=== PATIENT | female | born 1935 ===

== ENCOUNTER 2020-08-31 17:41 | Inpatient (IN) | payer MEDICARE, OTHER ==
[~2020-08-31] VITALS: Ht 165.1 cm; Wt 78.5 kg
[~2020-08-31 17:41] MED LIST: ASPI325 PO; ATEN50 PO; CEPH500 PO; CLON.1 PO; LISI5 PO; METO50 PO; PHENY100ER PO; Prednisone20 MG PO; SIMV40 PO; Vistaril50 MG PO
[2020-08-31 18:50] LABS: BASOPHILS ABSOLUTE AUTO 0.03 K/mm3 (0.00-0.23); BASOPHILS PERCENT AUTO 0 % (0-2); EOSINOPHILS PERCENT AUTO 0 % (0-6); Hematocrit 39.4 % (33.0-51.0); Hemoglobin 13.3 g/dL (11.5-16.0); IMMATURE GRAN ABSOLUTE AUTO 0.05 K/mm3 (0.00-0.10); IMMATURE GRAN PERCENT AUTO 0 % (0-1); LYMPHOCYTES PERCENT AUTO 6 % (21-46); MONOCYTES ABSOLUTE AUTO 0.67 K/mm3 (0.16-1.47); MONOCYTES PERCENT AUTO 5 % (4-13); Mean Corpuscular HGB 31.7 pg (26.0-34.0); Mean Corpuscular HGB Conc 33.8 g/dL (31.5-36.5); Mean Corpuscular Volume 94 fL (80-100); Mean Platelet Volume 8.3 fL (9.1-12.4); NEUTROPHILS PERCENT AUTO 88 % (41-73); Platelet Count 679 K/mm3 (150-400); RDW Coefficient Variation 12.9 % (11.7-14.2); RDW Standard Deviation 44.8 fL (35.1-46.3); Red Blood Cell Count 4.19 M/mm3 (3.80-5.20); White Blood Cell Count 14.25 K/mm3 (4.00-11.30)
[2020-08-31 19:17] LABS: Alanine Aminotransfer (ALT/SGP 23 U/L (12-78); Albumin/Globulin Ratio 1.1 (0.8-1.8); Alk Phos 103 U/L (50-136); Anion Gap 8 mmol/L (6-16); Aspartate Aminotrans (AST/SGOT 24 U/L (12-37); Bilirubin, Total 0.8 mg/dL (0.1-1.0); Blood Urea Nitrogen 19 mg/dL (8-24); Bun/Creatinine Ratio 20.7 (12.0-20.0); CO2, Blood 25 mmol/L (21-32); Calcium, Blood 9.7 mg/dL (8.5-10.1); Chloride, Blood 99 mmol/L (98-108); Creatinine, Blood 0.92 mg/dL (0.40-1.00); Globulin, Blood 3.8 g/dL (2.2-4.0); Glomerular Filtration Rate >60 (60-); Glucose, Blood 101 mg/dL (70-99); Potassium, Blood 3.9 mmol/L (3.5-5.5); Sodium, Blood 132 mmol/L (136-145); Total Protein, Blood 7.8 g/dL (6.4-8.2); Troponin I <0.015 ng/mL (0.000-0.040)
[2020-08-31 23:21] LABS: Source, Urine Catheter
[2020-08-31 23:23] LABS: Bilirubin, Urine Neg (Neg); Blood, Urine 2+ (Neg); Glucose Qualitative, Urine Neg (Neg); Ketones, Urine Neg (Neg); Leukocyte Esterase, Urine 1+ (Neg); Nitrite, Urine Neg (Neg); Protein, Urine 3+ (Neg); Specific Gravity, Urine 1.015 (1.003-1.022); Urobilinogen, Urine NORM (Normal)
[2020-08-31 23:31] LABS: Appearance, Urine Hazy (Clear); Color, Urine Yellow (P-Yellow)
[2020-08-31 23:32] LABS: Bacteria Many /hpf; Red Blood Cells, Urine Rare /hpf (0-2); Squamous Epithelial Cells Rare /hpf (Few); White Blood Cells, Urine 50-100 /hpf (0-5)
[2020-09-01] MEDS ORDERED: AMLO10 PO (01:26)
[2020-09-01] MEDS ORDERED: LAMO100 PO (01:26)
[2020-09-01 05:32] LABS: BASOPHILS ABSOLUTE AUTO 0.04 K/mm3 (0.00-0.23); BASOPHILS PERCENT AUTO 0 % (0-2); EOSINOPHILS ABSOLUTE AUTO 0.06 K/mm3 (0.00-0.68); EOSINOPHILS PERCENT AUTO 1 % (0-6); Hemoglobin 12.1 g/dL (11.5-16.0); IMMATURE GRAN ABSOLUTE AUTO 0.03 K/mm3 (0.00-0.10); IMMATURE GRAN PERCENT AUTO 0 % (0-1); LYMPHOCYTES ABSOLUTE AUTO 1.38 K/mm3 (0.84-5.20); LYMPHOCYTES PERCENT AUTO 13 % (21-46); MONOCYTES ABSOLUTE AUTO 1.08 K/mm3 (0.16-1.47); MONOCYTES PERCENT AUTO 10 % (4-13); Mean Corpuscular HGB 32.4 pg (26.0-34.0); Mean Corpuscular HGB Conc 34.6 g/dL (31.5-36.5); Mean Corpuscular Volume 94 fL (80-100); Mean Platelet Volume 8.3 fL (9.1-12.4); NEUTROPHILS ABSOLUTE AUTO 8.24 K/mm3 (1.96-9.15); NEUTROPHILS PERCENT AUTO 76 % (41-73); Platelet Count 590 K/mm3 (150-400); RDW Coefficient Variation 12.8 % (11.7-14.2); RDW Standard Deviation 44.5 fL (35.1-46.3); Red Blood Cell Count 3.73 M/mm3 (3.80-5.20); White Blood Cell Count 10.83 K/mm3 (4.00-11.30)
[2020-09-01 06:12] LABS: Alanine Aminotransfer (ALT/SGP 21 U/L (12-78); Albumin, Blood 3.2 g/dL (3.4-5.0); Alk Phos 85 U/L (50-136); Anion Gap 9 mmol/L (6-16); Aspartate Aminotrans (AST/SGOT 39 U/L (12-37); Bilirubin, Total 0.8 mg/dL (0.1-1.0); Blood Urea Nitrogen 17 mg/dL (8-24); Bun/Creatinine Ratio 18.1 (12.0-20.0); CO2, Blood 24 mmol/L (21-32); Calcium, Blood 8.5 mg/dL (8.5-10.1); Chloride, Blood 102 mmol/L (98-108); Creatinine, Blood 0.94 mg/dL (0.40-1.00); Globulin, Blood 3.1 g/dL (2.2-4.0); Glomerular Filtration Rate >60 (60-); Glucose, Blood 86 mg/dL (70-99); Potassium, Blood 3.3 mmol/L (3.5-5.5); Sodium, Blood 135 mmol/L (136-145); Total Protein, Blood 6.3 g/dL (6.4-8.2)
[2020-09-01] MEDS ORDERED: ASPI81CH PO (12:54)
[2020-09-01] MEDS ORDERED: LOSA50 PO (12:57)
--- NOTE | 2020-09-01 13:15 | NUR ---
ADMISSION PT ADMITTED AT 1240. PT ORIENTED TO ROOM. CALL LIGHT IN REACH. BED ALARM SET. PT A&O AT THIS TIME. PT STATES SHE WILL CALL BEFORE GETTING OUT BY BED. PT PROVIDED WITH YOGURT & WATER. VS REVIEWED.
--- NOTE | 2020-09-01 18:07 | NUR ---
SHIFT SUMMARY PT WORKED WITH OT TODAY. GOT UP TO CHAIR WITH 1P ASSIST FOR A FEW HOURS. PT BACK IN BED NOW. EATING DINNER. BED ALARM ON. PT EX-DAUGHTER IN [place] IN TO SEE HER TODAY. IV FLUIDS DCED. TELE RUNNING NSR PER OFFICE CLEANER. PT DENIES CP/SOB THIS SHIFT. NO ACUTE CHANGES IN ASSESSMENT AT THIS TIME. VS REVIEWED. DR. MURRAY CALLED & NOTIFIED OF COMPLETED HOME MED LIST. HYDRALAZINE ORDERED CHANGED TO Q4H PRN FOR BETTER COVERAGE NEEDED. CALL LIGHT IN REACH.
--- NOTE | 2020-09-02 03:35 | NUR ---
PULP ROLLER SUMMARY PT A&OX3, PLEASANT, PT FORGETFUL AND IMPULSIVE AT TIMES. PT EDUCATED ON PROPER USE OF CALL LIGHT. NO C/O PAIN OR ANY DISCOMFORT. DENIES CP, SOB, OR N&V. PT ON CIWA MONITORING, NO S/S OF ETOH WITHDRAWALS NOTED. PT CONT ON IV ABX, NO ASE NOTED. PT CALM AND RESTED IN BED T/O SHIFT. BED AT LOWEST POSITION W/ ALARM ON, CALL LIGHT WITHIN REACH. PT SBA TO THE BATHROOM. CONTINENT OF B&B. DENIES DYSURIA.
--- NOTE | 2020-09-02 18:09 | NUR ---
SHIFT SUMMARY PT UP IN ROOM FREQUENTLY CHECKING ON DIFFERENT ITEMS OR GOING TO THE BATHROOM. WALKED IN HALLWAY FOR APPROX 15 MINUTES WITH STAFF THIS MORNING. APPEARS STABLE ON FEET. CAN BE IMPULSIVE AND DOESN'T CALL FOR ASSISTANCE AND CHAIR ALARM GOES OFF. POSSIBLE DISCHARGE TOMORROW. FAMILY IN TO VISIT THIS AFTERNOON.
[2020-09-03 05:16] LABS: BASOPHILS ABSOLUTE AUTO 0.05 K/mm3 (0.00-0.23); BASOPHILS PERCENT AUTO 1 % (0-2); EOSINOPHILS ABSOLUTE AUTO 0.13 K/mm3 (0.00-0.68); EOSINOPHILS PERCENT AUTO 2 % (0-6); Hematocrit 36.8 % (33.0-51.0); Hemoglobin 12.4 g/dL (11.5-16.0); IMMATURE GRAN ABSOLUTE AUTO 0.03 K/mm3 (0.00-0.10); IMMATURE GRAN PERCENT AUTO 0 % (0-1); LYMPHOCYTES PERCENT AUTO 16 % (21-46); MONOCYTES ABSOLUTE AUTO 0.94 K/mm3 (0.16-1.47); MONOCYTES PERCENT AUTO 12 % (4-13); Mean Corpuscular HGB 32.5 pg (26.0-34.0); Mean Corpuscular HGB Conc 33.7 g/dL (31.5-36.5); Mean Corpuscular Volume 97 fL (80-100); Mean Platelet Volume 8.6 fL (9.1-12.4); NEUTROPHILS ABSOLUTE AUTO 5.55 K/mm3 (1.96-9.15); NEUTROPHILS PERCENT AUTO 69 % (41-73); Platelet Count 621 K/mm3 (150-400); RDW Coefficient Variation 13.1 % (11.7-14.2); RDW Standard Deviation 46.2 fL (35.1-46.3); Red Blood Cell Count 3.81 M/mm3 (3.80-5.20)
[2020-09-03 05:41] LABS: Albumin, Blood 3.1 g/dL (3.4-5.0); Bilirubin, Total 0.4 mg/dL (0.1-1.0); Bun/Creatinine Ratio 15.5 (12.0-20.0); Calcium, Blood 8.6 mg/dL (8.5-10.1); Creatinine, Blood 1.16 mg/dL (0.40-1.00); Globulin, Blood 3.1 g/dL (2.2-4.0); Potassium, Blood 3.5 mmol/L (3.5-5.5); Total Protein, Blood 6.2 g/dL (6.4-8.2)
--- NOTE | 2020-09-03 05:50 | NUR ---
SHIFT SUMMARY- PT. A&O, FORGETFUL AT TIMES. HAD NO COMPLAINTS DURING THE NIGHT. PT. APPEARED TO HAVE RESTED COMFORTABLY IN BED DURING THE NIGHT, NO APPARENT DISTRESS NOTED. CALL LIGHT WITHIN REACH, SIDE RAILS UPX2, AND BED ALARM ON. WILL CONT TO MONITOR.
[2020-09-03] MEDS ORDERED: ATOR20 PO (10:49)
[2020-09-03] MEDS ORDERED: LEVFLO500 PO (10:49)
--- NOTE | 2020-09-03 11:30 | NUR ---
DISCHARGE INSTRUCTIONS COMPLETED AND DISCUSSED WITH PT AND DAUGHTER EXPRESING UNDERSTANDING. SCRIPTS FAXED TO [facility]. TO [facility] VIA W/C.
== END 2020-09-03 11:39 | disposition home health service (06) | DRG 689 ==
LOC: ER 17:41 → MEDS 09-01 01:53 → ERHOLD 09-01 01:53 → MEDS 09-01 12:35
PROVIDERS: Internal Medicine; Physician Assistant; ADMIT Internal Medicine
PROC: 3E0234Z Introduction of Serum, Toxoid and Vaccine into Muscle, Percutaneous Approach (ICD-10-PCS; principal; 2020-09-01)
DX: N39.0 Urinary tract infection, site not specified (principal); G92 Toxic encephalopathy; Z23 Encounter for immunization; E87.6 Hypokalemia; E86.0 Dehydration; R41.0 Disorientation, unspecified; I10 Essential (primary) hypertension; E78.5 Hyperlipidemia, unspecified; I16.0 Hypertensive urgency; G40.909 Epilepsy, unspecified, not intractable, without status epilepticus; Z79.82 Long term (current) use of aspirin; Z79.52 Long term (current) use of systemic steroids; Z87.891 Personal history of nicotine dependence
CPT/HCPCS: 36415; 70450; 71045; 80053; 81001; 84146; 84484; 85025; 87077; 87086; 87186; 93005; 93010; 96372; 96374; 96375; 96376; 97110; 97116; 97162; 97165; 97530; 99285-25; A9270; J0360; J0696; J1650; J7030; Q2038

== ENCOUNTER 2021-09-28 10:04 | Emergency (ER) | payer MEDICARE ==
[~2021-09-28] VITALS: Ht 165.1 cm; Wt 75.8 kg
[~2021-09-28 10:04] MED LIST changes: +AMLO10 PO; +AMLODIPINE BESYL5 MG PO; +ASPI81CH PO; +ATOR10 PO; +ATOR20 PO; +Aspir 8181 MG PO; +FURO20 PO; +LAMO100 PO; +LAMOTRIGINE100 M1 PO; +LEVFLO500 PO; +LOSA50 PO; +LOSARTAN POTAS100 M1 PO; +METO25 PO; +SODCHL1 PO; +SPIR25 PO; +XARELTO15 MG PO
[2021-09-28 11:15] LABS: BASOPHILS ABSOLUTE AUTO 0.01 K/mm3 (0.00-0.23); BASOPHILS PERCENT AUTO 0 % (0-2); EOSINOPHILS ABSOLUTE AUTO 0.03 K/mm3 (0.00-0.68); EOSINOPHILS PERCENT AUTO 1 % (0-6); IMMATURE GRAN ABSOLUTE AUTO 0.02 K/mm3 (0.00-0.10); IMMATURE GRAN PERCENT AUTO 0 % (0-1); LYMPHOCYTES ABSOLUTE AUTO 0.83 K/mm3 (0.84-5.20); LYMPHOCYTES PERCENT AUTO 15 % (21-46); MONOCYTES ABSOLUTE AUTO 0.42 K/mm3 (0.16-1.47); MONOCYTES PERCENT AUTO 8 % (4-13); Mean Corpuscular HGB Conc 27.8 g/dL (31.5-36.5); Mean Corpuscular Volume 76 fL (80-100); Mean Platelet Volume 9.5 fL (9.1-12.4); NEUTROPHILS ABSOLUTE AUTO 4.31 K/mm3 (1.96-9.15); NEUTROPHILS PERCENT AUTO 77 % (41-73); NRBC ABSOLUTE 0.03 K/mm3 (0.00-0.02); NRBC Auto 0.5 /100 WBC (0.0-0.2); Platelet Count 412 K/mm3 (150-400); RDW Standard Deviation 46.6 fL (35.1-46.3); Red Blood Cell Count 2.38 M/mm3 (3.80-5.20); White Blood Cell Count 5.62 K/mm3 (4.00-11.30)
[2021-09-28 11:29] LABS: Magnesium, Blood 2.5 mg/dL (1.6-2.4)
[2021-09-28 11:44] LABS: Albumin, Blood 3.4 g/dL (3.4-5.0); Albumin/Globulin Ratio 1.2 (0.8-1.8); Bilirubin, Total 0.7 mg/dL (0.1-1.0); Bun/Creatinine Ratio 17.9 (12.0-20.0); Calcium, Blood 9.2 mg/dL (8.5-10.1); Creatinine, Blood 2.4 mg/dL (0.40-1.00); Globulin, Blood 2.9 g/dL (2.2-4.0); Potassium, Blood 4.1 mmol/L (3.5-5.5); Total Protein, Blood 6.3 g/dL (6.4-8.2)
[2021-09-28 13:43] LABS: Influenza A, PCR NEGATIVE (NEGATIVE); Influenza B, PCR NEGATIVE (NEGATIVE); Resp Syncytial Virus, PCR NEGATIVE (NEGATIVE); SARS-Cov-2 (COVID-19) PCR, MMC NEGATIVE (NEGATIVE)
[2021-09-28 14:01] LABS: Source, Urine Clean Catch
[2021-09-28 14:05] LABS: Bilirubin, Urine Neg (Neg); Blood, Urine Neg (Neg); Glucose Qualitative, Urine Neg (Neg); Ketones, Urine Neg (Neg); Leukocyte Esterase, Urine Neg (Neg); Nitrite, Urine Neg (Neg); Protein, Urine Neg (Neg); Specific Gravity, Urine 1.005 (1.003-1.022); Urobilinogen, Urine NORM (Normal); pH, Urine 6.5 (5.0-8.0)
[2021-09-28 14:11] LABS: Appearance, Urine Clear (Clear); Color, Urine Pale Yellow (P-Yellow)
[2021-12-25] MEDS ORDERED: CEFD300 PO (23:01)
[2021-12-25] MEDS ORDERED: ONDA4ODT MM (23:15)
== END 2021-09-28 16:00 | disposition short-term general hospital (02) ==
LOC: ER 10:04
PROVIDERS: Emergency Medicine; Physician Assistant
DX: K92.2 Gastrointestinal hemorrhage, unspecified (principal); I13.0 Hypertensive heart and chronic kidney disease with heart failure and stage 1 through stage 4 chronic kidney disease, or unspecified chronic kidney disease; N18.9 Chronic kidney disease, unspecified; I50.9 Heart failure, unspecified; D63.1 Anemia in chronic kidney disease; Z20.822 Contact with and (suspected) exposure to COVID-19; I48.91 Unspecified atrial fibrillation; E78.5 Hyperlipidemia, unspecified; Z79.899 Other long term (current) drug therapy; Z79.82 Long term (current) use of aspirin; N18.4 Chronic kidney disease, stage 4 (severe)
CPT/HCPCS: 0241U; 36415; 36430; 51702; 80053; 81003; 82272; 82607; 82746; 83735; 84100; 84443; 85025; 86850; 86900; 86901; 86923; 93005; 93010; 96374; 99285-25; C9113; J7030; P9016

== ENCOUNTER 2022-03-30 09:17 | Emergency (ER) | payer MEDICARE ==
[~2022-03-30] VITALS: Ht 165.1 cm; Wt 70.3 kg
[~2022-03-30 09:17] MED LIST changes: +CEFD300 PO; +ONDA4ODT MM
[2022-03-30] MEDS ORDERED: Voltaren100 GM TOP (12:00)
== END 2022-03-30 12:10 | disposition home or self-care (01) ==
LOC: ER 09:17
DX: M75.41 Impingement syndrome of right shoulder (principal); I11.0 Hypertensive heart disease with heart failure; I50.9 Heart failure, unspecified; E78.5 Hyperlipidemia, unspecified; Z79.899 Other long term (current) drug therapy; Z79.01 Long term (current) use of anticoagulants
CPT/HCPCS: 73030; 99283-25

== ENCOUNTER 2022-12-01 08:32 | Inpatient (IN) | payer MEDICARE ==
[~2022-12-01] VITALS: Ht 165.1 cm; Wt 77.1 kg
[2022-12-01] VITALS (9 sets, daily range): BP systolic 150–183; BP diastolic 56–120
[~2022-12-01 08:32] MED LIST changes: +Voltaren100 GM TOP
[2022-12-01 08:50] LABS: Calcium, Ionized (POC) 1.22 mmol/L (1.10-1.46); Chloride (POC) 95 mmol/L (98-108); Creatinine (POC) 1.8 mg/dL (0.6-1.0); Glucose (ISTAT POC) 262 mg/dL (70-99); Potassium (POC) 4.4 mmol/L (3.5-5.5); Sodium (POC) 126 mmol/L (135-148); Total CO2 (POC) 21 mmol/L (21-32)
[2022-12-01 08:54] LABS: BASOPHILS ABSOLUTE AUTO 0.14 K/mm3 (0.00-0.23); BASOPHILS PERCENT AUTO 1 % (0-2); EOSINOPHILS ABSOLUTE AUTO 0.38 K/mm3 (0.00-0.68); EOSINOPHILS PERCENT AUTO 2 % (0-6); Hematocrit 40.9 % (33.0-51.0); Hemoglobin 12.7 g/dL (11.5-16.0); IMMATURE GRAN ABSOLUTE AUTO 0.71 K/mm3 (0.00-0.10); IMMATURE GRAN PERCENT AUTO 4 % (0-1); LYMPHOCYTES ABSOLUTE AUTO 7.61 K/mm3 (0.84-5.20); LYMPHOCYTES PERCENT AUTO 41 % (21-46); MONOCYTES ABSOLUTE AUTO 0.81 K/mm3 (0.16-1.47); MONOCYTES PERCENT AUTO 4 % (4-13); Mean Corpuscular HGB 32.9 pg (26.0-34.0); Mean Corpuscular HGB Conc 31.1 g/dL (31.5-36.5); Mean Corpuscular Volume 106 fL (80-100); NEUTROPHILS ABSOLUTE AUTO 8.77 K/mm3 (1.96-9.15); NEUTROPHILS PERCENT AUTO 48 % (41-73); NRBC ABSOLUTE 0.02 K/mm3 (0.00-0.02); NRBC Auto 0.1 /100 WBC (0.0-0.2); Platelet Count 655 K/mm3 (150-400); RDW Coefficient Variation 13.1 % (11.7-14.2); RDW Standard Deviation 51.3 fL (35.1-46.3); Red Blood Cell Count 3.86 M/mm3 (3.80-5.20); White Blood Cell Count 18.42 K/mm3 (4.00-11.30)
[2022-12-01 08:58] LABS: Base Excess Venous -20.5 mmol/L; PCO2 Venous 55.7 mmHg (38-42)
[2022-12-01 08:59] LABS: pH Blood Venous 6.94 (7.34-7.37)
[2022-12-01 09:10] LABS: Albumin, Blood 3.2 g/dL (3.4-5.0); Bun/Creatinine Ratio 18.8 (12.0-20.0); Calcium, Blood 8.8 mg/dL (8.5-10.1); Creatinine, Blood 1.54 mg/dL (0.40-1.00); Globulin, Blood 3.2 g/dL (2.2-4.0); Magnesium, Blood 2.4 mg/dL (1.6-2.4); Potassium, Blood 4.5 mmol/L (3.5-5.5); Total Protein, Blood 6.4 g/dL (6.4-8.2)
[2022-12-01 09:11] LABS: International Normalized Ratio 1.26; Prothrombin Time Results 13.1 Sec (9.7-11.5)
--- NOTE | 2022-12-01 12:09 | NUR ---
Pt was found slumped in her recliner this am. Called 911 and pt was found to be in asystole. They achieved ROSC in the field, lost pulse en route to the hospital, then regained ROSC with a dose of epi. Pt was intubated and brought to the ED. Family have decided against further treatment, and are awaiting the rest of family to arrive before extubating. Pt will be placed on comfort measures, and sent to ICU 7. Received orders for comfort care from Dr. Jarrett, and update given to both Han Villaseñor RN in ED and Kelsie Banda RN in ICU.
--- NOTE | 2022-12-01 12:22 | NUR ---
Assumed care of pt on arrival to ICU 7 from emergency departement. Plan for modified comfort care at this time and then terminal extubation when family member from [place] arrives. Pt on transport ventilator. Spo2 90% or greater per sat probe to ear.
--- NOTE | 2022-12-01 13:10 | NUR ---
"Spiritual Care Support | Nurse reequest Pt. is intubated in ED26 and is non responsive. Family members are present and verbalize the Pts. wishes to not continue life support measure. Palliative Care nurse Camila met with the family and confirmed thier desire to maintain the ventilator until Pts. son arrives from [place]. Pt. is moved to ICU7. This parole board member sated in ICU waiting room with the large family facilitating life reviews and normalizing the hospital experience. After Pt. was settled in her room it was agreed that the family could have five people at time. This parole board member will remain available to the staff and the family."
--- NOTE | 2022-12-01 14:24 | NUR ---
Several family members in room to see patient. Plan of care continues to be extubation when pt's son from [place] arrives.
--- NOTE | 2022-12-01 17:14 | NUR ---
Spir. Care Comfort Care Visit - EOL decisions Pt. is on comfort care. Several family members are present. Re-establish rapport with family. At the families request offer a blessing for the Pt. and the family. Stay with family and facilitate more life review. Family display appropriate grief. Offer pastoral grief support. Family verbalizes gratitude for the spiritual care visit. Note: The family has chosen [facility] in [facility] for home services.
--- NOTE | 2022-12-01 17:55 | NUR ---
Extubated at 1618. Propofol was empty, drip discontinued for extubation. Pt premedicated with morphine and ativan. After extubation, pt had large amount of audible secretions with respirations and severe repetitive muscle tremors and repetitive eye opening. Medicated with additional morphine, ativan, and dilaudid, until pt appeared comfortable. Camila GALVIN from pallitive care at bedside to assist with medication recommendations to help pt achieve comfort as patient's appearance was startling to the family. After last dose of ativan given, pt finally appeared calm and comfortable. Provided family with rhythm strip vial and fingerprint medalliion. Family appropriately visiting with patient.
--- NOTE | 2022-12-01 21:45 | NUR ---
ASSUMPTION OF CARE/PT TRANSFERRED TO [facility] RM [id number]: ASSUMED CARE OF PT AT 1900. PT UNRESPONSIVE, ASLEEP IN BED AT THIS TIME. PT HAS VERY COARSE LUNG SOUNDS THROUGHOUT AND MODERATE ORAL SECRETIONS. HR ON MONITOR 90-110'S. PT MEDICATED WITH MORPHINE AND ATROPINE PER EMAR. RECTAL TUBE IN PLACE AND DRAINING TO GRAVITY; BROWN LIQUID OUTPUT. CHEUNG IN PLACE AND DRAINING TO GRAVITY WITH MINIMAL OUTPUT. PT REPOSITIONED AND BOOSTED IN BED. DAUGHTER'S MONICA AND JUAN DANIEL, AND GRANDDAUGHTER HARSH AT BEDSIDE. FAMILY SPOKE WITH THIS RN ABOUT MEDICATIONS AND COMFORT MEASURE BEING APPLIED; ALL QUESTIONS ANSWERED AT THIS TIME. PT TRANSFERRED TO MEDICAL FLOOR. REPORT GIVEN TO OMAYRA GALVIN FOR ASSUMPTION OF CARE. PT TRANSFERRED VIA BED WITH THIS RN AND PCT. PT LEFT UNIT AT 2114. ALL BELONGINGS AND MEDICATIONS TRANSPORTED WITH PT TO NEW ROOM. FAMILY UPDATED ON NEW ROOM NUMBER AND MET PT UP IN NEW ROOM.
--- NOTE | 2022-12-01 22:59 | NUR ---
2129 PT WAS TRANSFER FROM ICU TO THE FLOOR PT MOVED TO BED FROM ICU BED WITH SLIDDER AND 4 PERSON TRANSFER. PT NON RESPONSIVE BREATHING WITH CORSE SOUNDS,MULTIPLE FAMILY MEMBERS HER AT BED SIDE. PT REPOSITIONED WITH PILLOWS FOR COMFORT TURNED TO HER LEFT SIDE. PT WAS GIVEN ATROPINE GTTS AND IV DILAUDID.PT RESTING PEACFULLY. SOME FAMILY HAD GONE HOME AN OTHER IN ROOM AT BED SIDE. AT 2237 FAMILY CAME PT NOT BREATHING. PT HAD PASSED AND WAS CHECKED BY THIS NURSE AND PRISONER CLASSIFICATION INTERVIEWER ODIN CODY. PT PASSED AT 2237. PTS FAMILY TOOK BLANKET NO OTHER BELONGING WERE BROUGHT HERE, FAMILY STATED NO OTHER FAMILY MEMBERS WERE COMMING TO SEE PT TONIGHT. AND FAMILY STATED IT WAS OK TO CALL THE HOME. CALLED AND NOTIFIED OF PTS PASSING.
== END 2022-12-01 22:38 | DRG 208 ==
LOC: ER 08:32 → ICUE 11:24 → ICUW 11:24 → ICUE 12:03 → MEDS 21:30
PROVIDERS: Student in an Organized Health Care Education/Training Program; ADMIT Internal Medicine
PROC: 5A1935Z Respiratory Ventilation, Less than 24 Consecutive Hours (ICD-10-PCS; principal; 2022-12-01)
PROC: 0BH17EZ Insertion of Endotracheal Airway into Trachea, Via Natural or Artificial Opening (ICD-10-PCS; 2022-12-01)
PROC: 5A12012 Performance of Cardiac Output, Single, Manual (ICD-10-PCS; 2022-12-01)
PROC: 0T9B70Z Drainage of Bladder with Drainage Device, Via Natural or Artificial Opening (ICD-10-PCS; 2022-12-01)
PROC: 0DH67UZ Insertion of Feeding Device into Stomach, Via Natural or Artificial Opening (ICD-10-PCS; 2022-12-01)
DX: J96.01 Acute respiratory failure with hypoxia (principal); E87.1 Hypo-osmolality and hyponatremia; I13.0 Hypertensive heart and chronic kidney disease with heart failure and stage 1 through stage 4 chronic kidney disease, or unspecified chronic kidney disease; N17.9 Acute kidney failure, unspecified; E87.4 Mixed disorder of acid-base balance; I48.20 Chronic atrial fibrillation, unspecified; E87.20 Acidosis, unspecified; I46.8 Cardiac arrest due to other underlying condition; J96.02 Acute respiratory failure with hypercapnia; Z66 Do not resuscitate; Z51.5 Encounter for palliative care; D72.829 Elevated white blood cell count, unspecified; N18.30 Chronic kidney disease, stage 3 unspecified; D75.839 Thrombocytosis, unspecified; R74.01 Elevation of levels of liver transaminase levels; I50.9 Heart failure, unspecified; D63.1 Anemia in chronic kidney disease; G40.909 Epilepsy, unspecified, not intractable, without status epilepticus; E78.5 Hyperlipidemia, unspecified; E87.8 Other disorders of electrolyte and fluid balance, not elsewhere classified; R73.9 Hyperglycemia, unspecified; I08.1 Rheumatic disorders of both mitral and tricuspid valves; I95.9 Hypotension, unspecified; F10.90 Alcohol use, unspecified, uncomplicated; I27.20 Pulmonary hypertension, unspecified; Z90.49 Acquired absence of other specified parts of digestive tract; Z79.899 Other long term (current) drug therapy; Z87.891 Personal history of nicotine dependence; Z86.79 Personal history of other diseases of the circulatory system; Z79.02 Long term (current) use of antithrombotics/antiplatelets; Z79.01 Long term (current) use of anticoagulants; Z79.2 Long term (current) use of antibiotics
CPT/HCPCS: 51702; 71045; 80047; 80053; 82550; 82803; 83735; 83880; 84146; 84484; 85014; 85025; 85610; 85730; 93005; 93010; 94002; 96365-59; 96375-59; 99291-25; A9270; J0171; J1170; J2060; J2270; J2543; J2704; J7030; J7060